=== PATIENT | male | born 1930 | race Caucasian/White ===

== ENCOUNTER → 2018-11-07 | Outpatient (CLI) | payer MEDICARE ==
--- NOTE | 2018-11-07 08:17 | US ---
EXAMINATION TYPE: US abdomen comp/pelvis limited DATE OF EXAM: 11/07/2018 COMPARISON: NONE CLINICAL HISTORY: R10.9 abdominal pain; R10.2 pelvic pain. Patient states no symptoms EXAM MEASUREMENTS: Liver Length: 14.8 cm Gallbladder Wall: 0.2 cm CBD: 0.7 cm Spleen: 14.6 cm Right Kidney: 9.5 x 5.5 x 5.7 cm Left Kidney: 10.8 x 5.2 x 4.7 cm Pancreas: visualized portions wnl, partially obscured by overlying midline bowel gas Liver: course echotexture Gallbladder: wnl CBD: mildly dilated Spleen: enlarged Right Kidney: wnl Left Kidney: 4.8 x 3.6 x 3.5cm cystic area medial mid pole, 2.7 x 2.6 x 2.7cm cystic area mid pole Upper IVC: wnl Abd Aorta: proximal portion wnl, mid and distal obscured by overlying midline bowel gas Bladder: thickened irregular posterior wall Bilateral Jets Seen yes IMPRESSION: 1. Fatty liver versus diffuse hepatocellular disease. 2. Mild of dictation common bile duct. 3. Left renal cyst as noted.
== END | disposition home or self-care (01) ==
LOC: RADUSWWP 07:01
PROVIDERS: ATTEND Family Medicine
DX: N28.1 Cyst of kidney, acquired (principal)
CPT/HCPCS: 76700; 76857

== ENCOUNTER 2019-10-12 11:59 | Inpatient (IN) | payer MEDICARE ==
[2019-10-12] MEDS ORDERED: IPRATROPIUM-ALBUTEROL 3 ML NEB INHALATION STA (13:54)
--- NOTE | 2019-10-12 13:58 | ED ---
General Adult HPI - General Chief complaint: Dizziness Stated complaint: dizziness 1.5 wks Time Seen by Provider: 10/12/19 13:46 Source: patient Mode of arrival: ambulatory - History of Present Illness Initial comments: This 89-year-old white male presents with a complaint of some shortness of breath as well as some weakness. This been going on for approximately 10 days. He will have shortness of breath which is worse with exertion. He denies any chest pain or fevers. There's been no cough. He does complain of some lower extremity edema in his ankle region. He denies any known cardiac conditions or pulmonary conditions. He denies any urinary symptoms. Old records do relate that he has atrial fibrillation. No other complaints or modifying factors. He denies any orthopnea. He does have a history of atrial fibrillation but is not aware of any previous history of congestive heart failure. - Related Data Home Medications Medication Instructions Recorded Confirmed Latanoprost Ophth [Xalatan 0.005%] 1 drops LEFT EYE HS 07/05/15 10/12/19 Levothyroxine Sodium [Synthroid] 50 mcg PO DAILY 07/05/15 10/12/19 Multivitamin [Men's Multi-Vitamin] 1 tab PO DAILY 07/05/15 10/12/19 Atorvastatin [Lipitor] 20 mg PO HS 10/12/19 10/12/19 Dorzolamide 2% [Trusopt 2%] 1 drops LEFT EYE BID 10/12/19 10/12/19 Furosemide [Lasix] 20 mg PO DAILY 10/12/19 10/12/19 Hydrochlorothiazide 12.5 mg PO DAILY 10/12/19 10/12/19 Losartan Potassium 50 mg PO HS 10/12/19 10/12/19 Metoprolol Succinate [Toprol XL] 25 mg PO HS 10/12/19 10/12/19 Rivaroxaban [Xarelto] 15 mg PO DAILY 10/12/19 10/12/19 Allergies Allergy/AdvReac Type Severity Reaction Status Date / Time No Known Allergies Allergy Verified 10/12/19 15:08 Review of Systems ROS Statement: Those systems with pertinent positive or pertinent negative responses have been documented in the HPI. ROS Other: All systems not noted in ROS Statement are negative. Past Medical History Past Medical History: Atrial Fibrillation, Eye Disorder, Hypertension, Osteoarthritis (OA), Prostate Disorder, Sleep Apnea/CPAP/BIPAP, Thyroid Disorder Additional Past Medical History / Comment(s): Colon polyps in the past, edema in both lower extrem. Enlarged prostate. Glaucoma. History of Any Multi-Drug Resistant Organisms: None Reported Additional Past Surgical History / Comment(s): sinus surgery yrs. ago, EAR SURGERY Past Anesthesia/Blood Transfusion Reactions: No Reported Reaction Past Psychological History: No Psychological Hx Reported Smoking Status: Former smoker Past Alcohol Use History: None Reported, Daily Past Drug Use History: None Reported - Past Family History Mother Family Medical History: No Reported History General Exam - General Exam Comments Initial Comments: GENERAL: The patient is well nourished and well hydrated. VITAL SIGNS: Heart rate, blood pressure, respiratory rate reviewed as recorded i n nurse's notes. EYES: Pupils are round and reactive. Extraocular movements are intact. No conjunctival / lid redness or swelling. ENT: No external evidence of injury, swelling, or ecchymosis. Airway is patent. Throat is clear. NECK: Nontender. No swelling or evidence of injury. No subcutaneous emphysema. Trachea is midline. No thyroid mass. HEART: Regular rate and rhythm. Good peripheral pulses. Mild edema noted to the ankle region bilaterally. LUNGS/CHEST: Mild Rales noted bilaterally. No ecchymosis, subcutaneous emphysema, or tenderness. ABDOMEN: Abdomen soft without tenderness. No palpable masses or organomegaly. No peritoneal signs. No abdominal wall swelling or ecchymosis. EXTREMITIES: No extremity tenderness. Normal muscle tone and function. No thoracolumbar tenderness. NEUROLOGIC: Sensation is grossly intact. Cranial nerve exam reveals face is symmetrical, tongue is midline, speech is clear. SKIN: No abrasions or ecchymosis is noted. No induration or masses noted. PSYCHIATRIC: Alert and pleasant. Appropriate behavior and judgment. Course Vital Signs 10/12/19 10/12/19 10/12/19 13:06 13:14 14:11 Temperature 97.4 F L Pulse Rate 50 L 50 L Respiratory 19 20 20 Rate Blood Pressure 169/66 140/74 O2 Sat by Pulse 98 95 Oximetry 10/12/19 10/12/19 10/12/19 14:15 14:25 15:02 Temperature Pulse Rate 56 L 63 55 L Respiratory 20 Rate Blood Pressure 158/81 O2 Sat by Pulse 95 Oximetry Medical Decision Making - Medical Decision Making The patient was seen and examined. All diagnostics are reviewed. The EKG shows an atrial fibrillation at a rate of 61. There multiple PVCs noted. There is nonspecific ST-T wave changes noted throughout. An IV is started. He is placed on a talent acquisition coordinator and this does show multiple PVCs. The laboratory is reviewed and this does show an elevation of the troponin as well as a leukopenia. BNP currently is pending. The chest x-ray shows bilateral pleural effusions and signs consistent with congestive heart failure. The patient does receive aspirin as well as some Nitropaste. He also receives 80 mg of Lasix intravenously. He was given a breathing treatment and might have noted limited relief if any. Overall, it is felt as though the patient does have congestive heart failure and would benefit from admission to the hospital. Patient and family are agreeable. Case will be discussed with Dr. Issa in the near future. - Lab Data Result diagrams: 10/12/19 13:28 10/12/19 13:28 Lab Results 10/12/19 10/12/19 10/12/19 Range/Units 13:28 13:28 13:28 WBC 3.7 L (3.8-10.6) k/uL RBC 4.09 L (4.30-5.90) m/uL Hgb 13.6 (13.0-17.5) gm/dL Hct 39.4 (39.0-53.0) % MCV 96.2 (80.0-100.0) fL MCH 33.3 (25.0-35.0) pg MCHC 34.6 (31.0-37.0) g/dL RDW 14.7 (11.5-15.5) % Plt Count 88 L (150-450) k/uL Neutrophils % 82 % Lymphocytes % 8 % Monocytes % 6 % Eosinophils % 1 % Basophils % 0 % Neutrophils # 3.0 (1.3-7.7) k/uL Lymphocytes # 0.3 L (1.0-4.8) k/uL Monocytes # 0.2 (0-1.0) k/uL Eosinophils # 0.0 (0-0.7) k/uL Basophils # 0.0 (0-0.2) k/uL Manual Slide Review Performed PT (9.0-12.0) sec INR (<1.2) APTT (22.0-30.0) sec Sodium 132 L (137-145) mmol/L Potassium 4.0 (3.5-5.1) mmol/L Chloride 92 L (98-107) mmol/L Carbon Dioxide 31 H (22-30) mmol/L Anion Gap 9 mmol/L BUN 13 (9-20) mg/dL Creatinine 0.69 (0.66-1.25) mg/dL Est GFR (CKD-EPI)AfAm >90 (>60 ml/min/1.73 sqM) Est GFR (CKD-EPI)NonAf 85 (>60 ml/min/1.73 sqM) Glucose 95 (74-99) mg/dL Calcium 9.1 (8.4-10.2) mg/dL Phosphorus 3.8 (2.5-4.5) mg/dL Magnesium 1.5 L (1.6-2.3) mg/dL Total Bilirubin 2.1 H (0.2-1.3) mg/dL AST 48 (17-59) U/L ALT 26 (4-49) U/L Alkaline Phosphatase 93 (38-126) U/L Troponin I (0.000-0.034) ng/mL Total Protein 7.0 (6.3-8.2) g/dL Albumin 4.0 (3.5-5.0) g/dL TSH 4.290 (0.465-4.680) mIU/L 10/12/19 10/12/19 Range/Units 13:28 13:28 WBC (3.8-10.6) k/uL RBC (4.30-5.90) m/uL Hgb (13.0-17.5) gm/dL Hct (39.0-53.0) % MCV (80.0-100.0) fL MCH (25.0-35.0) pg MCHC (31.0-37.0) g/dL RDW (11.5-15.5) % Plt Count (150-450) k/uL Neutrophils % % Lymphocytes % % Monocytes % % Eosinophils % % Basophils % % Neutrophils # (1.3-7.7) k/uL Lymphocytes # (1.0-4.8) k/uL Monocytes # (0-1.0) k/uL Eosinophils # (0-0.7) k/uL Basophils # (0-0.2) k/uL Manual Slide Review PT 12.3 H (9.0-12.0) sec INR 1.2 H (<1.2) APTT 30.4 H (22.0-30.0) sec Sodium (137-145) mmol/L Potassium (3.5-5.1) mmol/L Chloride (98-107) mmol/L Carbon Dioxide (22-30) mmol/L Anion Gap mmol/L BUN (9-20) mg/dL Creatinine (0.66-1.25) mg/dL Est GFR (CKD-EPI)AfAm (>60 ml/min/1.73 sqM) Est GFR (CKD-EPI)NonAf (>60 ml/min/1.73 sqM) Glucose (74-99) mg/dL Calcium (8.4-10.2) mg/dL Phosphorus (2.5-4.5) mg/dL Magnesium (1.6-2.3) mg/dL Total Bilirubin (0.2-1.3) mg/dL AST (17-59) U/L ALT (4-49) U/L Alkaline Phosphatase (38-126) U/L Troponin I 0.042 H* (0.000-0.034) ng/mL Total Protein (6.3-8.2) g/dL Albumin (3.5-5.0) g/dL TSH (0.465-4.680) mIU/L Disposition Clinical Impression: Weakness, Dyspnea, Chronic atrial fibrillation, Congestive heart failure, Bra dycardia, Hypertension, Leukopenia, Thrombocytopenia, Hypochloremia Disposition: ADMITTED IP TO THIS [facility] Condition: Fair Time of Disposition: 16:29 Decision Date: 10/12/19 Decision Time: 16:29
[2019-10-12 14:02] LABS: ALT 26 U/L (4-49); AST 48 U/L (17-59); African American GFR (CKD) >90 (>60 ml/min/1.73 sqM); Alkaline Phosphatase 93 U/L (38-126); Anion Gap 9 mmol/L; Blood Urea Nitrogen 13 mg/dL (9-20); Calcium 9.1 mg/dL (8.4-10.2); Carbon Dioxide 31 mmol/L (22-30); Chloride 92 mmol/L (98-107); Glucose 95 mg/dL (74-99); Non-African American GFR(CKD) 85 (>60 ml/min/1.73 sqM); Sodium 132 mmol/L (137-145); Total Bilirubin 2.1 mg/dL (0.2-1.3)
[2019-10-12 14:16] LABS: Basophils % (A) 0 %; Eosinophils % (A) 1 %; HCT 39.4 % (39.0-53.0); HGB 13.6 gm/dL (13.0-17.5); Lymphocytes # (A) 0.3 k/uL (1.0-4.8); Lymphocytes % (A) 8 %; MCH 33.3 pg (25.0-35.0); MCHC 34.6 g/dL (31.0-37.0); MCV 96.2 fL (80.0-100.0); Mean Platelet Volume 8.1; Monocytes # (A) 0.2 k/uL (0-1.0); Monocytes % (A) 6 %; Neutrophils % (A) 82 %; RBC 4.09 m/uL (4.30-5.90); RDW 14.7 % (11.5-15.5); WBC 3.7 k/uL (3.8-10.6)
[2019-10-12 14:32] LABS: Platelet Count 88 k/uL (150-450)
--- NOTE | 2019-10-12 14:36 | XR ---
EXAMINATION TYPE: XR chest 2V DATE OF EXAM: 10/12/2019 COMPARISON: None TECHNIQUE: PA and lateral views submitted. HISTORY: Weakness FINDINGS: Bilateral consolidation and pleural effusion. Perihilar interstitial pattern noted hypertrophic and d egenerative changes spine. Biapical pleural thickening. Atherosclerotic change aorta. IMPRESSION: 1. Bilateral infiltrate and pleural effusion correlate for CHF otherwise consider pneumonia.
[2019-10-12 15:01] LABS: Magnesium 1.5 mg/dL (1.6-2.3); Phosphorus 3.8 mg/dL (2.5-4.5)
[2019-10-12 15:05] LABS: INR 1.2 (<1.2); Partial Thromboplastin Time 30.4 sec (22.0-30.0); Prothrombin Time 12.3 sec (9.0-12.0)
[2019-10-12] MEDS ORDERED: MAGNESIUM SULFATE-D5W PMX 1 GM in DEXTROSE/WATER 1 100ML.BAG IVPB ONE (16:04)
[2019-10-12] MEDS ORDERED: FUROSEMIDE 10 MG/ML 10 ML VIAL IV STA (16:04)
[2019-10-12] MEDS ORDERED: NITROGLYCERIN OINT 1 INCH/GM PACKET TOPICAL STA (16:04)
[2019-10-12] MEDS ORDERED: ASPIRIN 81 MG PO STA (16:04)
[2019-10-12 17:27] LABS: Appearance,Urine Clear (Clear); Bilirubin,Urine Negative (Negative); Blood,Urine Negative (Negative); Color,Urine Yellow; Glucose,Urine (UA) Negative (Negative); Ketones,Urine Trace (Negative); Leukocyte Esterase,Urine Negative (Negative); Nitrite,Urine Negative (Negative); Protein,Urine Negative (Negative)
[2019-10-12] MEDS: NITROGLYCERIN OINT 1 INCH/GM PACKET TOPICAL SCH ×2 (19:34→21:29)
[2019-10-12] MEDS ORDERED: METOPROLOL SUCCINATE (ER) 25 MG TAB.ER.24H PO SCH (21:00)
[2019-10-12] MEDS: LOSARTAN 50 MG TAB PO SCH (21:29)
[2019-10-12] MEDS: ATORVASTATIN 20 MG TAB PO SCH (21:29)
[2019-10-12] MEDS: FUROSEMIDE 10 MG/ML 4 ML VIAL IV SCH (21:30)
[2019-10-12] MEDS: DORZOLAMIDE HCL 2% DROPS 10 ML BTL LEFT EYE SCH (21:30)
[2019-10-12] MEDS: LATANOPROST 0.005% OPHTH DROPS 2.5 ML BTL LEFT EYE SCH (21:31)
[2019-10-13] MEDS: LEVOTHYROXINE 50 MCG TAB PO SCH (05:59)
--- NOTE | 2019-10-13 07:03 | ECHOF ---
Referral Reason:Heart Failure MEASUREMENTS -------- HEIGHT: 175.3 cm WEIGHT: 73.9 kg BP: RVIDd: 3.4 cm (< 3.3) IVSd: 1.6 cm (0.6 - 1.1) LVIDd: 4.4 cm (3.9 - 5.3) LVPWd: 1.6 cm (0.6 - 1.1) IVSs: 1.8 cm LVIDs: 4.0 cm LVPWs: 1.8 cm LAESV Index (A-L): 127.02 ml/m Ao Diam: 3.3 cm (2.0 - 3.7) AV Cusp: 0.8 cm (1.5 - 2.6) LA Diam: 5.0 cm (2.7 - 3.8) MV EXCURSION: 13.550 mm (> 18.000) MV EF SLOPE: 55 mm/s (70 - 150) EPSS: 2.0 cm AV maxP.32 mmHg AV meanP.59 mmHg RAP: 5.00 mmHg RVSP: 11.81 mmHg FINDINGS -------- Atrial fibrillation. This was a technically adequate study. The left ventricular size is normal. There is moderate concentric left ventricular hypertrophy. T here is severe global hypokinesis of LV . Overall left ventricular systolic function is severely im paired with, an EF between 20 - 25 %. Left ventricular fillimg pressure cannot be estimated due to Atrial fibrillation. The right ventricle is mildly enlarged. LA is severely dilated >40 ml/m2 The right atrium is mildly enlarged. Interatrial and interventricular septum intact. Aortic valve is trileaflet and is moderately thickened. There is mild aortic stenosis present. Pe ak/mean gradient across the Aortic Valve is 15.32mmHg / 7.59mmHg. The mitral valve leaflets are moderately thickened. Severe mitral regurgitation is present. The tricuspid valve appears structurally normal. Mild tricuspid regurgitation present. Right vent ricular systolic pressure is normal at < 35 mmHg. The right ventricular systolic pressure, as measu red by Doppler, is 11.81mmHg. Moderate pulmonic regurgitation. The aortic root size is normal. Normal inferior vena cava with normal inspiratory collapse consistent with estimated right atrial pre ssure of 5 mmHg. There is a small, generalized pericardial effusion present. Large Pleural Effusion. CONCLUSIONS -------- 1. Atrial fibrillation. 2. This was a technically adequate study. 3. The left ventricular size is normal. 4. There is moderate concentric left ventricular hypertrophy. 5. There is severe global hypokinesis of LV . 6. Overall left ventricular systolic function is severely impaired with, an EF between 20 - 25 %. 7. Left ventricular fillimg pressure cannot be estimated due to Atrial fibrillation. 8. The right ventricle is mildly enlarged. 9. LA is severely dilated >40 ml/m2 10. The right atrium is mildly enlarged. 11. Aortic valve is trileaflet and is moderately thickened. 12. There is mild aortic stenosis present. 13. Peak/mean gradient across the Aortic Valve is 15.32mmHg / 7.59mmHg. 14. The mitral valve leaflets are moderately thickened. 15. Severe mitral regurgitation is present. 16. Mild tricuspid regurgitation present. 17. Right ventricular systolic pressure is normal at < 35 mmHg. 18. Moderate pulmonic regurgitation. 19. There is a small, generalized pericardial effusion present. 20. Large Pleural Effusion. SOFTWARE CONFIGURATION ENGINEER: Nati Pan RDCS
--- NOTE | 2019-10-13 08:40 | P.CRDCN ---
History of Present Illness Consult date: 10/13/19 Requesting physician: Mina Layne Consult reason: congestive heart failure Chief complaint: Shortness of breath History of present illness: This is an 89-year-old gentleman, he is not quite sure on his medical history, he does state that recently he's been told to have some heart problems including irregular heartbeat, he is unsure exactly of what else. He does think that he has seen a wood strip block floor installer recently as a new patient, we will attempt to get some records. He presents to the hospital with symptoms of shortness of breath and progressive weakness over the past 10 days or so. His chest x-ray on presentation here reveals bilateral infiltrate and pleural effusion, correlate for congestive heart failure possible pneumonia. His EKG on presentation here shows an atrial fibrillation with occasional PVC, heart rate of 60, nonspecific ST-T wave changes. Echocardiogram with Doppler study was performed which revealed an ejection fraction of 20-25%, LA is severely dilated, severe mitral regurgitation, moderate pulmonary regurgitation and small generalized pericardial effusion with a large pleural effusion noted. Blood pressure this morning 128/60 with a heart rate of 56, 95% on 2 L of oxygen. White blood cell count 3.7, hemoglobin 13.6, platelet count 88. Mag 1.5. Sodium 132, potassium 4.0, BUN 13, creatinine 0.6. BNP level 10,100. TSH 4.2. Troponin 0.042, 0. 047, 0.054. At the time of my examination this morning, patient is sitting up in bed, he does state that he feels mildly short of breath, he has no other complaints. Past Medical History Past Medical History: Atrial Fibrillation, Eye Disorder, Hypertension, Osteoarthritis (OA), Prostate Disorder, Sleep Apnea/CPAP/BIPAP, Thyroid Disorder Additional Past Medical History / Comment(s): Colon polyps in the past, edema in both lower extrem. Enlarged prostate. Glaucoma. History of Any Multi-Drug Resistant Organisms: None Reported Additional Past Surgical History / Comment(s): sinus surgery yrs. ago, EAR SURGERY Past Anesthesia/Blood Transfusion Reactions: No Reported Reaction Past Psychological History: No Psychological Hx Reported Smoking Status: Former smoker Past Alcohol Use History: Daily Additional Past Alcohol Use History / Comment(s): usually drinks 2-3 beers/day, used to drink more. Past Drug Use History: None Reported - Past Family History Father Family Medical History: No Reported History Mother Family Medical History: No Reported History Medications and Allergies Home Medications Medication Instructions Recorded Confirmed Type Latanoprost Ophth [Xalatan 0.005%] 1 drops LEFT EYE HS 07/05/15 10/12/19 History Levothyroxine Sodium [Synthroid] 50 mcg PO DAILY 07/05/15 10/12/19 History Multivitamin [Men's Multi-Vitamin] 1 tab PO DAILY 07/05/15 10/12/19 History Atorvastatin [Lipitor] 20 mg PO HS 10/12/19 10/12/19 History Dorzolamide 2% [Trusopt 2%] 1 drops LEFT EYE BID 10/12/19 10/12/19 History Furosemide [Lasix] 20 mg PO DAILY 10/12/19 10/12/19 History Hydrochlorothiazide 12.5 mg PO DAILY 10/12/19 10/12/19 History Losartan Potassium 50 mg PO HS 10/12/19 10/12/19 History Metoprolol Succinate [Toprol XL] 25 mg PO HS 10/12/19 10/12/19 History Rivaroxaban [Xarelto] 15 mg PO DAILY 10/12/19 10/12/19 History Allergies Allergy/AdvReac Type Severity Reaction Status Date / Time No Known Allergies Allergy Verified 10/12/19 15:08 Physical Exam Vitals: Vital Signs Temp Pulse Pulse Resp BP BP Pulse Ox 10/13/19 05:57 97.9 F 56 L 18 128/69 95 10/12/19 23:43 72 16 135/58 99 10/12/19 21:20 98.5 F 82 18 156/76 99 10/12/19 21:00 62 20 138/87 95 10/12/19 20:00 62 20 151/91 95 10/12/19 19:00 63 20 150/89 95 10/12/19 18:00 65 20 147/78 95 10/12/19 17:00 58 L 20 152/85 95 10/12/19 16:00 58 L 20 147/96 95 10/12/19 15:02 55 L 20 158/81 95 10/12/19 14:25 63 10/12/19 14:15 56 L 10/12/19 14:11 50 L 20 140/74 95 10/12/19 13:14 20 10/12/19 13:06 97.4 F L 50 L 19 169/66 98 Intake and Output 10/12/19 10/13/19 10/13/19 22:59 06:59 14:59 Intake Total 360 Output Total 2100 200 Balance -2100 160 Intake: Oral 360 Output: Urine 2100 200 Other: Voiding Method Urinal # Voids 3 Weight 76.294 kg 76.3 kg PHYSICAL EXAMINATION: GENERAL: 89-year-old gentleman in no acute distress at the time of my examination HEENT: Head is atraumatic, normocephalic. Pupils equal, round. Sclera anicteric. Conjunctiva are clear. Mucous membranes of the mouth are moist. Neck is supple. There is elevated jugular venous pressure. No carotid bruit is heard. HEART EXAMINATION: Heart S1 and S2 irregularly irregular a systolic murmur is heard in the mitral area CHEST EXAMINATION: Lungs reveal diminished air entry bilaterally ABDOMEN: Soft, nontender. Bowel sounds are heard. No organomegaly noted. EXTREMITIES: 2+ peripheral pulses with trace evidence of peripheral edema and no calf tenderness noted. NEUROLOGIC patient is awake, alert and oriented 1 . . Results 10/12/19 13:28 10/12/19 13:28 Cardiac Enzymes 10/12/19 10/12/19 10/12/19 Range/Units 13:28 13:28 22:14 AST 48 (17-59) U/L Troponin I 0.042 H* 0.047 H* (0.000-0.034) ng/mL 10/13/19 Range/Units 01:16 AST (17-59) U/L Troponin I 0.054 H* (0.000-0.034) ng/mL Coagulation 10/12/19 Range/Units 13:28 PT 12.3 H (9.0-12.0) sec APTT 30.4 H (22.0-30.0) sec CBC 10/12/19 Range/Units 13:28 WBC 3.7 L (3.8-10.6) k/uL RBC 4.09 L (4.30-5.90) m/uL Hgb 13.6 (13.0-17.5) gm/dL Hct 39.4 (39.0-53.0) % Plt Count 88 L (150-450) k/uL Comprehensive Metabolic Panel 10/12/19 Range/Units 13:28 Sodium 132 L (137-145) mmol/L Potassium 4.0 (3.5-5.1) mmol/L Chloride 92 L (98-107) mmol/L Carbon Dioxide 31 H (22-30) mmol/L BUN 13 (9-20) mg/dL Creatinine 0.69 (0.66-1.25) mg/dL Glucose 95 (74-99) mg/dL Calcium 9.1 (8.4-10.2) mg/dL AST 48 (17-59) U/L ALT 26 (4-49) U/L Alkaline Phosphatase 93 (38-126) U/L Total Protein 7.0 (6.3-8.2) g/dL Albumin 4.0 (3.5-5.0) g/dL Current Medications Generic Name Dose Route Start Last Admin Trade Name Freq PRN Reason Stop Dose Admin Aspirin 325 mg 10/13/19 09:00 Aspirin PO DAILY [facility] Atorvastatin Calcium 20 mg 10/12/19 21:00 10/12/19 21:29 Lipitor PO 20 mg HS ERIC Administration Dorzolamide HCl 1 drops 10/12/19 21:00 10/12/19 21:30 Trusopt LEFT EYE 1 drops BID ERIC Administration Furosemide 40 mg 10/12/19 21:00 10/12/19 21:30 Lasix IV 40 mg Q12HR ERIC Administration Hydrochlorothiazide 12.5 mg 10/13/19 09:00 Hydrodiuril PO DAILY ERIC Latanoprost 1 drops 10/12/19 21:00 10/12/19 21:31 Xalatan 0.005% LEFT EYE 1 drops HS ERIC Administration Levothyroxine Sodium 50 mcg 10/13/19 06:30 10/13/19 05:59 Synthroid PO 50 mcg DAILY@0630 ERIC Administration Losartan Potassium 50 mg 10/12/19 21:00 10/12/19 21:29 Cozaar PO 50 mg HS ERIC Administration Metoprolol Succinate 25 mg 10/12/19 21:00 10/12/19 21:29 Toprol Xl PO 25 mg HS ERIC Administration Multivitamins 1 each 10/13/19 09:00 Theragran PO DAILY [facility] Nitroglycerin 1 inch 10/12/19 18:00 10/12/19 21:29 Nitro-Bid Oint TOPICAL 1 inch QID ERIC Administration Rivaroxaban 15 mg 12/31/19 09:00 Xarelto PO DAILY ERIC Intake and Output 10/12/19 10/13/19 10/13/19 22:59 06:59 14:59 Intake Total 360 Output Total 2100 200 Balance -2100 160 Intake: Oral 360 Output: Urine 2100 200 Other: Voiding Method Urinal # Voids 3 Weight 76.294 kg 76.3 kg 10/12/19 13:28 10/12/19 13:28 EKG Interpretations (text) EKG shows atrial fibrillation with a slow ventricular response, occasional PVC Assessment and Plan Plan: Assessment and plan #1 systolic congestive heart failure acute on chronic #2 persistent atrial fibrillation with slow ventricular response on a TSH is normal #3 hypothyroidism #4 hypertension #5 hyperlipidemia #6 cardiomyopathy, 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 Plan Patient had an echo cardiogram with Doppler study performed which revealed an ejection fraction of 20-25% with severe mitral regurgitation noted as well as significant pleural effusion and small pericardial effusion. We will discontinue the patient's aspirin, continue the Lipitor, continue IV Lasix, monitoring intake and output along with daily weights and daily lytes BUN and creatinine. The patient is somewhat bradycardic, we will decrease his dose of beta terry, continue losartan, discontinue Nitropaste, and replace his magnesium. We will also obtain the office records. Further recommendations to follow. DNP note has been reviewed, I agree with a documented findings and plan of care. Patient was seen and examined.
[2019-10-13] MEDS ORDERED: HYDROCHLOROTHIAZIDE 12.5 MG CAP PO SCH (09:00)
[2019-10-13] MEDS ORDERED: ASPIRIN 325 MG TAB PO SCH (09:00)
[2019-10-13] MEDS: DORZOLAMIDE HCL 2% DROPS 10 ML BTL LEFT EYE SCH ×2 (09:12→22:33)
[2019-10-13] MEDS: MULTIVITAMINS, THERA 1 EACH TAB PO SCH (09:12)
[2019-10-13] MEDS: RIVAROXABAN 15 MG TAB PO SCH (09:13)
[2019-10-13] MEDS: FUROSEMIDE 10 MG/ML 4 ML VIAL IV SCH ×2 (09:13→22:31)
[2019-10-13 13:23] VITALS: BMI 24.8
--- NOTE | 2019-10-13 15:00 | P.HPIM ---
History of Present Illness H&P Date: 10/13/19 89 yr old CM patient of Dr. tucker with past medical history of persistent atrial fibrillation, hypertension, BPH, sleep apnea on CPAP, hypothyroidism, history of congestive heart failure in the past comes in with a feeling of shortness of breath associated with episode of dizziness that started on [place] L. Detailed history from the suggest patient is a drinker and drinks a case of beer every day. Patient was also noted to request beer from the nurse On evaluation today patient denies any chest pain or shortness of breath or dizziness. His resting comfortably and is on in atrial fibrillation with heart rate running at 54 pounds 88 blood pressure 114/58. On evaluation and blood work patient up to see of 3.4 hemoglobin 13.3 platelet of 63 his INR was more than 10 on admission which improved to 1.2 today. Troponin on admission was 0.04 to with repeat troponin 0.047 and 0.054 creatinine 0.69 BNP 43422. Shouldn't underwent echocardiogram that suggested ejection fraction of 20-25% with globally dilated left ventricular wall and severe mitral regurgitation, moderate left ventricular hypertrophy, left atrium is severely dilated moderate pulmonary regurgitation and large pleural effusion noted on echocardiogram. Bilateral pleural effusions were noted and: Bilateral consolidation with perihilar interstitial pattern noted. EKG with T-wave inversion in anterior leads with Q waves in anterior leads. Cardiology evaluated the patient Review of Systems Constitutional: Denies chills, Denies fever, endorses lethargy Eyes: denies decreased vision, denies diplopia, denies discharge, denies pain Ears: deny: decreased hearing Ears, nose, mouth and throat: Denies dental pain, Denies headache, Denies nasal discharge, Denies nose pain Cardiovascular: Denies chest pain, Denies decreased exercise tolerance, Denies edema, Denies high blood pressure, Denies irregular heart beat, Denies palpitations, Denies paroxysmal nocturnal dyspnea, Denies rapid heart beat, Denies shortness of breath Respiratory: Denies congestion, Denies cough, Denies cough with sputum, endorses shortness of breath, Denies home oxygen, Denies wheezing Gastrointestinal: Denies abdominal pain, Denies change in bowel habits, Denies coffee ground emesis, Denies early satiety, Denies excessive gas, Denies heartburn, Denies hematemesis, Denies hematochezia, Denies loss of appetite, Denies nausea, Denies vomiting Genitourinary: Denies dysuria, Denies flank pain, Denies kidney stones, Denies menorrhagia, Denies urgency, Denies urinary frequency Musculoskeletal: Denies gait dysfunction, Denies limitation of motion, Denies morning stiffness, Denies muscle cramps Integumentary: Denies rash, Denies wounds, Denies brittle nails, Denies change in hair/nails, Denies darkening of skin Neurological: Denies balance difficulties, Denies change in speech, Denies double vision, Denies gait dysfunction, Denies loss of vision, Denies motor disturbance, Denies numbness, Denies paralysis, Denies paresthesias, Denies seizures Psychiatric: Denies anxiety, Denies depression Endocrine: Denies excessive sweating, Denies excessive thirst, Denies high blood sugars, Denies palpitations Hematologic/Lymphatic: Denies easy bruising, Denies lymphadenopathy Past Medical History Past Medical History: Atrial Fibrillation, Eye Disorder, Hypertension, Osteoarthritis (OA), Prostate Disorder, Sleep Apnea/CPAP/BIPAP, Thyroid Disorder Additional Past Medical History / Comment(s): Colon polyps in the past, edema in both lower extrem. Enlarged prostate. Glaucoma. History of Any Multi-Drug Resistant Organisms: None Reported Additional Past Surgical History / Comment(s): sinus surgery yrs. ago, EAR SURGERY Past Anesthesia/Blood Transfusion Reactions: No Reported Reaction Past Psychological History: No Psychological Hx Reported Smoking Status: Former smoker Past Alcohol Use History: Daily Additional Past Alcohol Use History / Comment(s): usually drinks 2-3 beers/day, used to drink more. Past Drug Use History: None Reported - Past Family History Father Family Medical History: No Reported History Mother Family Medical History: No Reported History Medications and Allergies Home Medications Medication Instructions Recorded Confirmed Type Latanoprost Ophth [Xalatan 0.005%] 1 drops LEFT EYE HS 07/05/15 10/12/19 History Levothyroxine Sodium [Synthroid] 50 mcg PO DAILY 07/05/15 10/12/19 History Multivitamin [Men's Multi-Vitamin] 1 tab PO DAILY 07/05/15 10/12/19 History Atorvastatin [Lipitor] 20 mg PO HS 10/12/19 10/12/19 History Dorzolamide 2% [Trusopt 2%] 1 drops LEFT EYE BID 10/12/19 10/12/19 History Furosemide [Lasix] 20 mg PO DAILY 10/12/19 10/12/19 History Hydrochlorothiazide 12.5 mg PO DAILY 10/12/19 10/12/19 History Losartan Potassium 50 mg PO HS 10/12/19 10/12/19 History Metoprolol Succinate [Toprol XL] 25 mg PO HS 10/12/19 10/12/19 History Rivaroxaban [Xarelto] 15 mg PO DAILY 10/12/19 10/12/19 History Allergies Allergy/AdvReac Type Severity Reaction Status Date / Time No Known Allergies Allergy Verified 10/12/19 15:08 Physical Exam Vitals: Vital Signs Temp Pulse Pulse Pulse Pulse Pulse Resp 10/13/19 12:20 78 81 88 10/13/19 11:52 54 L 18 10/13/19 08:00 97.7 F 55 L 20 10/13/19 05:57 97.9 F 56 L 18 10/12/19 23:43 72 16 10/12/19 21:20 98.5 F 82 18 10/12/19 21:00 62 20 10/12/19 20:00 62 20 10/12/19 19:00 63 20 10/12/19 18:00 65 20 10/12/19 17:00 58 L 20 10/12/19 16:00 58 L 20 10/12/19 15:02 55 L 20 10/12/19 14:25 63 10/12/19 14:15 56 L 10/12/19 14:11 50 L 20 BP BP Pulse Ox Pulse Ox Pulse Ox Pulse Ox 10/13/19 12:20 96 99 100 10/13/19 11:52 114/58 95 10/13/19 08:00 114/58 92 L 10/13/19 05:57 128/69 95 10/12/19 23:43 135/58 99 10/12/19 21:20 156/76 99 10/12/19 21:00 138/87 95 10/12/19 20:00 151/91 95 10/12/19 19:00 150/89 95 10/12/19 18:00 147/78 95 10/12/19 17:00 152/85 95 10/12/19 16:00 147/96 95 10/12/19 15:02 158/81 95 10/12/19 14:25 10/12/19 14:15 10/12/19 14:11 140/74 95 Intake and Output 10/12/19 10/13/19 10/13/19 22:59 06:59 14:59 Intake Total 720 Output Total 2100 1500 Balance -2100 -780 Intake: Oral 720 Output: Urine 2100 1500 Other: Voiding Method Urinal # Voids 3 Weight 76.294 kg 76.3 kg 76.3 kg - Constitutional General appearance: cooperative, no acute distress, thin-appearing - EENT Eyes: anicteric sclerae, PERRLA, normal appearance ENT: hearing is affected - Neck Neck: no lymphadenopathy, normal ROM, no other, no rigidity, no stridor, no thyromegaly - Respiratory Respiratory: bilateral: Decreased air entry bilaterally with crackles noted at the bases - Cardiovascular Rhythm: regular Heart sounds: normal: S1, S2 Abnormal Heart Sounds: 3/6 systolic murmur, no diastolic murmur and S4 gallop noted - Gastrointestinal General gastrointestinal: normal bowel sounds, soft nontender - Integumentary Integumentary: no rash - Neurologic Neurologic: CNII-XII intact - Musculoskeletal Musculoskeletal: gait normal, strength equal bilaterally - Psychiatric Psychiatric: A&O x's 3, appropriate affect Results CBC & Chem 7: 10/12/19 13:28 10/12/19 13:28 Labs: Abnormal Lab Results - Last 24 Hours (Table) 10/12/19 10/12/19 10/12/19 Range/Units 13:28 13:28 13:28 WBC 3.7 L (3.8-10.6) k/uL RBC 4.09 L (4.30-5.90) m/uL Plt Count 88 L (150-450) k/uL Lymphocytes # 0.3 L (1.0-4.8) k/uL PT (9.0-12.0) sec INR (<1.2) APTT (22.0-30.0) sec Sodium 132 L (137-145) mmol/L Chloride 92 L (98-107) mmol/L Carbon Dioxide 31 H (22-30) mmol/L Magnesium 1.5 L (1.6-2.3) mg/dL Total Bilirubin 2.1 H (0.2-1.3) mg/dL Troponin I (0.000-0.034) ng/mL Urine Ketones (Negative) 10/12/19 10/12/19 10/12/19 Range/Units 13:28 13:28 17:00 WBC (3.8-10.6) k/uL RBC (4.30-5.90) m/uL Plt Count (150-450) k/uL Lymphocytes # (1.0-4.8) k/uL PT 12.3 H (9.0-12.0) sec INR 1.2 H (<1.2) APTT 30.4 H (22.0-30.0) sec Sodium (137-145) mmol/L Chloride (98-107) mmol/L Carbon Dioxide (22-30) mmol/L Magnesium (1.6-2.3) mg/dL Total Bilirubin (0.2-1.3) mg/dL Troponin I 0.042 H* (0.000-0.034) ng/mL Urine Ketones Trace H (Negative) 10/12/19 10/13/19 Range/Units 22:14 01:16 WBC (3.8-10.6) k/uL RBC (4.30-5.90) m/uL Plt Count (150-450) k/uL Lymphocytes # (1.0-4.8) k/uL PT (9.0-12.0) sec INR (<1.2) APTT (22.0-30.0) sec Sodium (137-145) mmol/L Chloride (98-107) mmol/L Carbon Dioxide (22-30) mmol/L Magnesium (1.6-2.3) mg/dL Total Bilirubin (0.2-1.3) mg/dL Troponin I 0.047 H* 0.054 H* (0.000-0.034) ng/mL Urine Ketones (Negative) Thrombosis Risk Factor Assmnt - DVT/VTE Prophylaxis DVT/VTE Prophylaxis: Mechanical Prophylaxis ordered - Choose All That Apply Any of the Below Risk Factors Present?: Yes Each Factor Represents 1 point: Swollen legs (current) Each Risk Factor Represents 3 Points: Age 75 years or older Thrombosis Risk Factor Assessment Total Risk Factor Score: 4 Thrombosis Risk Factor Assessment Level: Moderate Risk Assessment and Plan Plan: #1 acute systolic congestive heart failure likely secondary to alcohol, or non ischemic in nature. Continue IV Lasix 40 iv bid , INR monitoring, daily weights daily CMP. #2 persistent atrial fibrillation with bradycardia Lopressor 12.5 at bedtime, continue xarelto #3 hypothyroidism synthyroid 50 mg po daily #4 troponin elevation, N STEMI ruled out . Aspirin stopped. 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 SCDs to be continued # 9 COde status full code. Patient's power of litigation attorney is her daughter who knows about patient's resuscitation status. Apparently patient has advanced directive which the daughter is aware of. Family is currently unaware of patient's resuscitation status and will let the nurse know
[2019-10-13] MEDS: METOPROLOL SUCCINATE (ER) 25 MG TAB.ER.24H PO SCH (22:31)
[2019-10-13] MEDS: LOSARTAN 50 MG TAB PO SCH (22:31)
[2019-10-13] MEDS: ATORVASTATIN 20 MG TAB PO SCH (22:32)
[2019-10-13] MEDS: LATANOPROST 0.005% OPHTH DROPS 2.5 ML BTL LEFT EYE SCH (22:32)
[2019-10-14] MEDS: LEVOTHYROXINE 50 MCG TAB PO SCH (07:01)
[2019-10-14] MEDS: MULTIVITAMINS, THERA 1 EACH TAB PO SCH (08:02)
[2019-10-14] MEDS: DORZOLAMIDE HCL 2% DROPS 10 ML BTL LEFT EYE SCH ×2 (08:02→20:05)
[2019-10-14] MEDS: RIVAROXABAN 15 MG TAB PO SCH (08:02)
[2019-10-14] MEDS: FUROSEMIDE 10 MG/ML 4 ML VIAL IV SCH (08:02)
--- NOTE | 2019-10-14 12:04 | P.PN ---
Subjective Progress Note Date: 10/14/19 89 yr old CM patient of Dr. tucker with past medical history of persistent atrial fibrillation, hypertension, BPH, sleep apnea on CPAP, hypothyroidism, history of congestive heart failure in the past comes in with a feeling of shortness of breath associated with episode of dizziness that started on [place] Maria L. Detailed history from the suggest patient is a drinker and drinks a case of beer every day. Patient was also noted to request beer from the nurse On evaluation today patient denies any chest pain or shortness of breath or dizziness. His resting comfortably and is on in atrial fibrillation with heart rate running at 54 pounds 88 blood pressure 114/58. On evaluation and blood work patient up to see of 3.4 hemoglobin 13.3 platelet of 63 his INR was more than 10 on admission which improved to 1.2 today. Troponin on admission was 0.04 to with repeat troponin 0.047 and 0.054 creatinine 0.69 BNP 24578. Shouldn't underwent echocardiogram that suggested ejection fraction of 20-25% with globally dilated left ventricular wall and severe mitral regurgitation, moderate left ventricular hypertrophy, left atrium is severely dilated moderate pulmonary regurgitation and large pleural effusion noted on echocardiogram. Bilateral pleural effusions were noted and: Bilateral consolidation with perihilar interstitial pattern noted. EKG with T-wave inversion in anterior leads with Q waves in anterior leads. Cardiology evaluated the patient 10/14/2019 patient's evaluated at bedside. Feeling comfortable. Patient's heart rate continued to dip down to 40. Temp 97.6 blood pressure 1:15/64 saturating at 91% on room air. Continue Lasix at 40 IV twice a day. We'll discuss the initiation of entresto this patient once the patient is stable. No documentation of pauses as per telem etry. No labs for today we will order a CMP to assess creatinine. Review of Systems Constitutional: Denies chills, Denies fever, endorses lethargy Eyes: denies decreased vision, denies diplopia, denies discharge, denies pain Ears: deny: decreased hearing Ears, nose, mouth and throat: Denies dental pain, Denies headache, Denies nasal discharge, Denies nose pain Cardiovascular: Denies chest pain, Denies decreased exercise tolerance, Denies edema, Denies high blood pressure, Denies irregular heart beat, Denies palpitations, Denies paroxysmal nocturnal dyspnea, Denies rapid heart beat, Denies shortness of breath Respiratory: Denies congestion, Denies cough, Denies cough with sputum, endorses shortness of breath, Denies home oxygen, Denies wheezing Gastrointestinal: Denies abdominal pain, Denies change in bowel habits, Denies coffee ground emesis, Denies early satiety, Denies excessive gas, Denies heartburn, Denies hematemesis, Denies hematochezia, Denies loss of appetite, Denies nausea, Denies vomiting Genitourinary: Denies dysuria, Denies flank pain, Denies kidney stones, Denies menorrhagia, Denies urgency, Denies urinary frequency Musculoskeletal: Denies gait dysfunction, Denies limitation of motion, Denies morning stiffness, Denies muscle cramps Integumentary: Denies rash, Denies wounds, Denies brittle nails, Denies change in hair/nails, Denies darkening of skin Neurological: Denies balance difficulties, Denies change in speech, Denies double vision, Denies gait dysfunction, Denies loss of vision, Denies motor disturbance, Denies numbness, Denies paralysis, Denies paresthesias, Denies seizures Psychiatric: Denies anxiety, Denies depression Endocrine: Denies excessive sweating, Denies excessive thirst, Denies high blood sugars, Denies palpitations Hematologic/Lymphatic: Denies easy bruising, Denies lymphadenopathy Objective - Vital Signs Vital signs: Vital Signs Temp 97.7 F 10/14/19 08:00 Pulse 76 10/14/19 08:00 Resp 20 10/14/19 08:00 BP 142/63 10/14/19 08:00 Pulse Ox 93 L 10/14/19 08:00 Intake & Output 10/13/19 10/14/19 10/14/19 18:59 06:59 18:59 Intake Total 960 Output Total 1700 2099 Balance -74 -2099 Weight 76.3 kg 70.7 kg Intake: Oral 960 Output: Urine 1700 2099 Other: Voiding Method Urinal # Voids 2 - Exam - Constitutional General appearance: cooperative, no acute distress, obese - EENT Eyes: anicteric sclerae, PERRLA, normal appearance ENT: Hard of hearing - Neck Neck: no lymphadenopathy, normal ROM, no other, no rigidity, no stridor, no thyromegaly - Respiratory Respiratory: bilateral: CTA, negative: diminished, dullness, rales, rhonchi - Cardiovascular Rhythm: regular Heart sounds: normal: S1, S2 Abnormal Heart Sounds: 3/6 systolic murmur, no diastolic murmur, no rub S4 gallop noted - Gastrointestinal General gastrointestinal: normal bowel sounds, soft nontender - Integumentary Integumentary: no rash - Neurologic Neurologic: CNII-XII intact - Musculoskeletal Musculoskeletal: gait normal, strength equal bilaterally - Psychiatric Psychiatric: A&O x's 3, appropriate affect - Labs CBC & Chem 7: 10/12/19 13:28 10/12/19 13:28 Labs: Microbiology - Last 24 Hours (Table) 10/12/19 14:57 Blood Culture - Preliminary Blood No Growth after 24 hours Assessment and Plan Plan: #1 acute systolic congestive heart failure likely secondary to alcohol, or nonischemic in nature. Continue IV Lasix 40 iv bid , I&O, daily weights daily CMP. #2 persistent atrial fibrillation with bradycardia Lopressor 12.5 at bedtime, continue xarelto . #3 hypothyroidism synthyroid 50 mg po daily #4 troponin elevation, N STEMI ruled out . Aspirin stopped. 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 SCDs to be continued # 9 COde status full code. Patient's power of state's attorney is her daughter who knows about patient's resuscitation status. Apparently patient has advanced directive which the daughter is aware of. Family is currently unaware of patient's resuscitation status and will let the nurse know #10 Dizziness likely secondary to dehydration from alcohol use. Orthostatic to be obtained. Rule out cardiogenic syncope continue patient on telemetry. Lopressor dose decreased to 12. 5 at night. Will follow up with cardiology for recommendation on pacemaker
--- NOTE | 2019-10-14 14:18 | P.PN ---
Subjective Patient is resting comfortably in bed. He does not appear short of breath however his medications a quite dry No chest discomfort no dizziness lightheadedness He presented to the hospital with progressive shortness of breath and weakness the last one to 2 weeks Chest x-ray revealed bilateral infiltrates pleural effusion He has severely reduced LV systolic function ejection fraction 20-25%, severe MR he also had a pericardial effusion and large pleural effusion BNP was 10,000 On examination he is afebrile 97.7F, pulse rate in the 50s Blood pressure 121/[address] mucosae Breath sounds are reduced bilaterally No JVD Systolic murmur over the precordium Irregular rhythm Telemetry reveals bases and ventricular couplets Labs are reviewed sodium 132, potassium 4.0 BUN 13 creatinine 0.7 Troponins borderline and flat trend TSH 4.3 Function normal Suggest Stop IV Lasix Switched to 40 mg by mouth twice a day of Lasix At home the patient takes 20 mg by mouth daily. I would definitely treat him with a higher dose of by mouth Lasix upon discharge Watch renal function and symptoms Watch for bradycardia Continue Rivaroxaban for stroke prevention Continue losartan and low-dose metoprolol succinate Continue atorvastatin Objective - Vital Signs Vital signs: Vital Signs Temp 97.7 F 10/14/19 08:00 Pulse 53 L 10/14/19 11:10 Resp 20 10/14/19 11:10 BP 121/56 10/14/19 11:10 Pulse Ox 93 L 10/14/19 11:10 Intake & Output 10/13/19 10/14/19 10/14/19 18:59 06:59 18:59 Intake Total 960 240 Output Total 1700 2100 1200 Balance -740 -2100 -960 Weight 76.3 kg 70.7 kg Intake: Oral 960 240 Output: Urine 1700 2100 1200 Other: Voiding Method Urinal # Voids 2 1 - Labs CBC & Chem 7: 10/12/19 13:28 10/12/19 13:28 Labs: Microbiology - Last 24 Hours (Table) 10/12/19 14:57 Blood Culture - Preliminary Blood No Growth after 24 hours
[2019-10-14] MEDS: FUROSEMIDE 40 MG TAB PO SCH (14:59)
[2019-10-14] MEDS: METOPROLOL SUCCINATE (ER) 25 MG TAB.ER.24H PO SCH (20:04)
[2019-10-14] MEDS: ATORVASTATIN 20 MG TAB PO SCH (20:05)
[2019-10-14] MEDS: LOSARTAN 50 MG TAB PO SCH (20:05)
[2019-10-14] MEDS: LATANOPROST 0.005% OPHTH DROPS 2.5 ML BTL LEFT EYE SCH (20:05)
[2019-10-15] MEDS: LEVOTHYROXINE 50 MCG TAB PO SCH (06:27)
[2019-10-15 06:42] LABS: ALT 19 U/L (4-49); AST 28 U/L (17-59); African American GFR (CKD) >90 (>60 ml/min/1.73 sqM); Albumin 3.3 g/dL (3.5-5.0); Alkaline Phosphatase 86 U/L (38-126); Blood Urea Nitrogen 14 mg/dL (9-20); Calcium 8.4 mg/dL (8.4-10.2); Chloride 84 mmol/L (98-107); Glucose 83 mg/dL (74-99); Non-African American GFR(CKD) 82 (>60 ml/min/1.73 sqM); Sodium 130 mmol/L (137-145); Total Bilirubin 2.1 mg/dL (0.2-1.3); Total Protein 5.9 g/dL (6.3-8.2)
[2019-10-15 06:49] LABS: Anion Gap 8 mmol/L
[2019-10-15 06:50] LABS: Carbon Dioxide 38 mmol/L (22-30)
[2019-10-15 06:52] LABS: Potassium 2.3 mmol/L (3.5-5.1)
[2019-10-15] MEDS: MULTIVITAMINS, THERA 1 EACH TAB PO SCH (09:35)
[2019-10-15] MEDS: DORZOLAMIDE HCL 2% DROPS 10 ML BTL LEFT EYE SCH (09:35)
[2019-10-15] MEDS: FUROSEMIDE 40 MG TAB PO SCH (09:35)
[2019-10-15] MEDS: POTASSIUM CHLORIDE ER 20 MEQ TAB.ER PO SCH ×2 (09:35→10:42)
[2019-10-15] MEDS: RIVAROXABAN 15 MG TAB PO SCH (09:35)
[2019-10-15 09:54] VITALS: TEMP 97.3
[2019-10-15 12:46] VITALS: BP 136/65; PULSE 60; RESP 19
[2019-10-15] MEDS ORDERED: POTASSIUM CHLORIDE ER 20 MEQ TAB.ER PO STA (13:03)
--- NOTE | 2019-10-15 13:05 | P.DS ---
Providers Date of admission: 10/12/19 16:32 Expected date of discharge: 10/15/19 Attending physician: Mina Layne MD Consults: 10/12/19 16:32 Consult Physician Routine Consulting Provider: Neela Hodges Consult Reason/Comments: chf, elevated troponin Do you want consulting provider notified?: Yes Primary care physician: [facility] Course: 89 yr old CM patient of Dr. tucker with past medical history of persistent atrial fibrillation, hypertension, BPH, sleep apnea on CPAP, hypothyroidism, history of congestive heart failure in the past comes in with a feeling of shortness of breath associated with episode of dizziness that started on [place] [facility] L. Detailed history from the suggest patient is a drinker and drinks a case of beer every day. Patient was also noted to request beer from the nurse On evaluation today patient denies any chest pain or shortness of breath or dizziness. His resting comfortably and is on in atrial fibrillation with heart rate running at 54 pounds 88 blood pressure 114/58. On evaluation and blood work patient up to see of 3.4 hemoglobin 13.3 platelet of 63 his INR was more than 10 on admission which improved to 1.2 today. Troponin on admission was 0.04 to with repeat troponin 0.047 and 0.054 creatinine 0.69 BNP [id number]. Shouldn't underwent echocardiogram that suggested ejection fraction of 20-25% with globally dilated left ventricular wall and severe mitral regurgitation, moderate left ventricular hypertrophy, left atrium is severely dilated moderate pulmonary regurgitation and large pleural effusion noted on echocardiogram. Bilateral pleural effusions were noted and: Bilateral consolidation with perihilar interstitial pattern noted. EKG with T-wave inversion in anterior leads with Q waves in anterior leads. Cardiology evaluated the patient 10/14/2019 patient's evaluated at bedside. Feeling comfortable. Patient's heart rate continued to dip down to 40. Temp 97.6 blood pressure 1:15/64 saturating at 91% on room air. Continue Lasix at 40 IV twice a day. We'll discuss the initiation of entresto this patient once the patient is stable. No documentation of pauses as per telemetry. No labs for today we will order a CMP to assess creatinine. 1/2: The patient denies any new complaints. Breathing status is stable, no chest pain. Patient is afebrile, blood pressure 136/65, pulse ox 97% on room air, heart rate 60. Discussed with Rebeca Ji that the patient would be a good candidate for Entresto. She states the process cheese cooker will plan to evaluate at office visit and can be started at that time. Patient will be discharged home today in stable condition. Discharge diagnoses: 1. Acute systolic heart failure likely secondary to alcohol, or nonischemic in nature. 2. Persistent atrial fibrillation with bradycardia 3. Hypothyroidism 4. Troponin elevation, NSTEMI ruled out . 5. HTN 6. HLD 7. 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 9. Dizziness likely secondary to dehydration from alcohol use. Discharge plan: Home Impression and plan of care have been directed as dictated by the signing physician. Rosario Brenner nurse practitioner acting as scribe for signing physician. Patient Condition at Discharge: Good Plan - Discharge Summary New Discharge Prescriptions: New Potassium Chloride ER [K-Dur 20] 40 meq PO DAILY #30 tab.er.prt Furosemide [Lasix] 40 mg PO BID@0900,1600 #60 tab Continue Levothyroxine Sodium [Synthroid] 50 mcg PO DAILY Multivitamin [Men's Multi-Vitamin] 1 tab PO DAILY Latanoprost Ophth [Xalatan 0.005%] 1 drops LEFT EYE HS Atorvastatin [Lipitor] 20 mg PO HS Rivaroxaban [Xarelto] 15 mg PO DAILY Losartan Potassium 50 mg PO HS Dorzolamide 2% [Trusopt 2%] 1 drops LEFT EYE BID Changed Metoprolol Succinate [Toprol XL] 12.5 mg PO HS #0 Discontinued Furosemide [Lasix] 20 mg PO DAILY Hydrochlorothiazide 12.5 mg PO DAILY Discharge Medication List Latanoprost Ophth [Xalatan 0.005%] 1 drops LEFT EYE HS 07/05/15 [History] Levothyroxine Sodium [Synthroid] 50 mcg PO DAILY 07/05/15 [History] Multivitamin [Men's Multi-Vitamin] 1 tab PO DAILY 07/05/15 [History] Atorvastatin [Lipitor] 20 mg PO HS 10/12/19 [History] Dorzolamide 2% [Trusopt 2%] 1 drops LEFT EYE BID 10/12/19 [History] Losartan Potassium 50 mg PO HS 10/12/19 [History] Rivaroxaban [Xarelto] 15 mg PO DAILY 10/12/19 [History] Furosemide [Lasix] 40 mg PO BID@0900,1600 #60 tab 10/15/19 [Rx] Metoprolol Succinate [Toprol XL] 12.5 mg PO HS #0 10/15/19 [Rx] Potassium Chloride ER [K-Dur 20] 40 meq PO DAILY #30 tab.er.prt 10/15/19 [Rx] Follow up Appointment(s)/Referral(s): Felix Carias MD [STAFF PHYSICIAN] - 10/22/19 9:30 am Panda Tucker MD [Primary Care Provider] - 10/21/19 9:15 am () Patient Instructions/Handouts: Heart Failure (DC), Heart Healthy Diet (DC) Activity/Diet/Wound Care/Special Instructions: CHF 1. Weigh yourself every morning after you urinate. If you gain 2-3 pounds overnight or 5 pounds in one week, call your primary physician for guidance on your medications. Keep a log of your weights. 2. Avoid salt, or foods with hidden salt. Extra salt makes your heart work harder and traps the fluid in your body for longer. 3. Take all of your medications as directed, especially your water pills. NEVER skip a dose. 4. Elevate your legs when you are not up moving around to help with circulation and prevent swelling. 5. Call your physician if you notice any extra swelling in your legs, ankles, feet or abdomen, if you have a new dry cough, if your shortness of breath worsens with activity or at rest, or if you feel more fatigued. Discharge Disposition: HOME SELF-CARE
--- NOTE | 2019-10-15 13:54 | P.PN ---
Subjective Progress Note Date: 10/15/19 This is an 89-year-old gentleman, he is not quite sure on his medical history, he does state that recently he's been told to have some heart problems including irregular heartbeat, he is unsure exactly of what else. He does think that he has seen a clean up worker recently as a new patient, we will attempt to get some records. He presents to the hospital with symptoms of shortness of breath and progressive weakness over the past 10 days or so. His chest x-ray on presentation here reveals bilateral infiltrate and pleural effusion, correlate for congestive heart failure possible pneumonia. His EKG on presentation here shows an atrial fibrillation with occasional PVC, heart rate of 60, nonspecific ST-T wave changes. Echocardiogram with Doppler study was performed which revealed an ejection fraction of 20-25%, LA is severely dilated, severe mitral regurgitation, moderate pulmonary regurgitation and small generalized pericardial effusion with a large pleural effusion noted. Blood pressure this morning 128/60 with a heart rate of 56, 95% on 2 L of oxygen. White blood cell count 3.7, hemoglobin 13.6, platelet count 88. Mag 1.5. Sodium 132, potassium 4.0, BUN 13, creatinine 0.6. BNP level 10,100. TSH 4.2. Troponin 0.042, 0.047, 0.054. At the time of my examination this morning, patient is sitting up in bed, he does state that he feels mildly short of breath, he has no other complaints. 10/15/2019 Patient was seen and examined this morning, breathing is stable. Blood pressure 136/60 with a heart rate in the 60s, 97% on room air. Sodium 1:30, potassium 2.3, BUN 14, creatinine 0.7. ANALY inhibitor has been discontinued and from Saturday patient will be initiated on and chest O. Plan is for the patient to be discharged home and follow-up in the office post discharge. Objective - Vital Signs Vital signs: Vital Signs Temp 97.3 F L 10/15/19 08:35 Pulse 60 10/15/19 12:10 Resp 19 10/15/19 12:10 BP 136/65 10/15/19 12:10 Pulse Ox 97 10/15/19 12:10 Intake & Output 10/14/19 10/15/19 10/15/19 18:59 06:59 18:59 Intake Total 360 240 240 Output Total 1450 675 300 Balance -1090 -435 -60 Weight 73.4 kg Intake: Oral 360 240 240 Output: Urine 1450 675 300 Other: Voiding Method Urinal # Voids 1 1 - Exam PHYSICAL EXAMINATION: GENERAL: 89-year-old gentleman in no acute distress at the time of my examination HEENT: Head is atraumatic, normocephalic. Pupils equal, round. Sclera anicteric. Conjunctiva are clear. Mucous membranes of the mouth are moist. Neck is supple. There is elevated jugular venous pressure. No carotid bruit is heard. HEART EXAMINATION: Heart S1 and S2 irregularly irregular a systolic murmur is heard in the mitral area CHEST EXAMINATION: Lungs reveal improvement in air entry bilaterally ABDOMEN: Soft, nontender. Bowel sounds are heard. No organomegaly noted. EXTREMITIES: 2+ peripheral pulses with trace evidence of peripheral edema and no calf tenderness noted. NEUROLOGIC patient is awake, alert and oriented 1 . 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 Plan ANALY inhibitor has been discontinued and from Saturday patient will be started on a contrast O, we will check to see regarding coverage. He may be able to be discharged home from our perspective after his potassium level is improved. We'll make him a follow-up appointment in the office post discharge. DNP note has been reviewed, I agree with a documented findings and plan of care. Patient was seen and examined.
[2019-10-17] MEDS ORDERED: SACUBITRIL/VALSARTAN 24 MG-26 MG TABLET PO SCH (09:00)
--- NOTE | 2019-10-21 06:52 | CDI ---
Documentation Clarification Form Date: 10/21/2019 06:34:33 AM From: Muriel Power Phone: ? If you have a question about this query, please contact Emma Motley, Firearms Specialist at [phone] between 8am and 5pm. Admit Date: 10/12/2019 04:32:00 PM Patient Name: Zane Tyler Visit Number: [id number] Discharge Date: 10/15/2019 02:33:00 PM ATTENTION: The Clinical Documentation Specialists (CDI) and [facility] Coding Staff appreciate your assistance in clarifying documentation. Please respond to the clarification below the line at the bottom and electronically sign. The CDI & [facility] Coding staff will review the response and follow-up if needed. Please note: Queries are made part of the Legal Health Record. If you have any questions, please contact the author of this message via ITS. Dr. Mina Layne The patient has documented potassium level of 2.3. Last PN from Cardiology documents "Patient may be DC'd home from our perspective after potassium levels improve. Please clarify if patient had hypokalemia History/Risk Factors: Potassium 2.3 In order to capture the severity of condition, please clarify if the condition signifies: Hypokalemia Abnormal Lab Value Other condition, please specify Unable to determine hypokalemia MTDD
== END 2019-10-15 14:33 | disposition home health service (06) | DRG 291 ==
LOC: EC 11:59 → 3SCARD 16:32
PROVIDERS: ADMIT Internal Medicine; ATTEND Internal Medicine
DX: I11.0 Hypertensive heart disease with heart failure (principal); I50.21 Acute systolic (congestive) heart failure; I31.3 Pericardial effusion (noninflammatory); I48.19 Other persistent atrial fibrillation; I42.8 Other cardiomyopathies; I08.8 Other rheumatic multiple valve diseases; F10.10 Alcohol abuse, uncomplicated; I49.3 Ventricular premature depolarization; D69.59 Other secondary thrombocytopenia; D72.819 Decreased white blood cell count, unspecified; R79.89 Other specified abnormal findings of blood chemistry; E03.9 Hypothyroidism, unspecified; E78.5 Hyperlipidemia, unspecified; E83.42 Hypomagnesemia; E86.0 Dehydration; E87.6 Hypokalemia; E87.8 Other disorders of electrolyte and fluid balance, not elsewhere classified; K70.9 Alcoholic liver disease, unspecified; N40.0 Benign prostatic hyperplasia without lower urinary tract symptoms; Z79.01 Long term (current) use of anticoagulants; Z79.890 Hormone replacement therapy; Z79.899 Other long term (current) drug therapy; Z86.010 Personal history of colon polyps; Z87.891 Personal history of nicotine dependence; H40.9 Unspecified glaucoma; G47.30 Sleep apnea, unspecified; Z99.89 Dependence on other enabling machines and devices
CPT/HCPCS: 36415; 71046; 80053; 81003; 83735; 83880; 84100; 84443; 84484; 85025; 85610; 85730; 87040; 93005; 93306; 94640; 96365; 96375; 99285